=== PATIENT | male | born 1985 | race Caucasian/White ===

== ENCOUNTER 2020-11-10 17:01 | Emergency (ER) | payer BC, SELFPAY ==
[2020-11-10 17:30] VITALS: BP 139/83; PULSE 96; RESP 18; TEMP 36.6; O2SAT 97
[2020-11-10 17:52] VITALS: BP 139/83; PULSE 96; RESP 18; TEMP 37; O2SAT 98; BMI 29.5
--- NOTE | 2020-11-10 20:20 | XR_ITS ---
EXAMINATION: XR CHEST CLINICAL INFORMATION: Shortness of breath COMPARISON: 09/08/2017 TECHNIQUE: Frontal view of the chest was obtained. FINDINGS: No significant abnormality is noted involving the heart, lungs, mediastinum, bony thorax or soft tissues. XR/XR chest 1V IMPRESSION: Unremarkable examination.
--- NOTE | 2020-11-10 20:20 | ED.GENADULT ---
HPI - General Adult General Chief complaint: General Medical Stated complaint: Weakness Time Seen by Provider: 11/10/20 17:48 Related Data Allergies Allergy/AdvReac Type Severity Reaction Status Date / Time amoxicillin [From AUGMENTIN] Allergy Intermediate hives Verified 11/10/20 17:51 clavulanic acid Allergy Unknown UNKNOWN Verified 11/10/20 17:51 [From AUGMENTIN] [facility] Past Medical History Medical History (Updated 11/10/20 @ 17:53 by Abbey Viveros) Diabetes Physical Exam Vital Signs: Vital Signs: Last Vital Signs Temp 98.6 F 11/10/20 17:52 Pulse 96 11/10/20 17:52 Resp 18 11/10/20 17:52 BP 139/83 11/10/20 17:52 Pulse Ox 98 11/10/20 17:52 Body Mass Index 29.5 Course Course Course Narrative: Rapid medical exam - 35 y/o male with dx DM1, hx GERD, migraines, hx MSSA bacteremia, hx anxiety presenting presenting with generalized weakness, headaches, shakiness and muscle pains since last night. [place] and has had exposures to COVID. VSS and lungs are clear. Tremulous in hands. Denies ETOH. Will check labs, Utox, ETOH level, CXR and COVID swab. Management per primary provider in the ED.
[2020-11-10 21:04] LABS: Influenza A PCR NEGATIVE (Negative); Influenza B PCR NEGATIVE (Negative); Resp Syncy Virus RNA Qual PCR NEGATIVE (Negative); SARS COV2 PCR INHOUSE NEGATIVE (Negative)
--- NOTE | 2020-11-10 21:05 | ECG_ITS ---
Test Reason : CHEST PAIN/ SOB Blood Pressure : / mmHG Vent. Rate : 091 BPM Atrial Rate : 091 BPM P-R Int : 138 ms QRS Dur : 088 ms QT Int : 372 ms P-R-T Axes : 043 -22 041 degrees QTc Int : 457 ms Normal sinus rhythm Cannot exclude old inferior infarct; could be normal variant Abnormal ECG When compared with ECG of 08-SEP-2017 06:38, No significant change was found Referred By: Brandon Romero Electronically Signed By:LONG MCDERMOTT
--- NOTE | 2020-11-10 21:05 | CT_ITS ---
EXAMINATION: CT HEAD WITHOUT CONTRAST CLINICAL INFORMATION: Weakness. Tremors. COMPARISON: CT head 07/08/2020 TECHNIQUE: Contiguous axial imaging was performed from the skull base to vertex without intravenous administration of contrast. Coronal and sagittal reformatted images are performed at the CT scanner This CT examination was performed using dose optimization techniques as appropriate, variously including the following: *Automated exposure control *Adjustment of mA and/or kV according to patient size (this includes techniques or standardized protocols for targeted exams where dose is matched to indication/reason for exam; i.e. extremities or head) *Use of iterative reconstruction technique DLP: 783 mGy-cm FINDINGS: There is no evidence of acute intracranial hemorrhage or territorial infarction. No abnormal mass effect or midline shift is seen. Negro to white matter differentiation is well preserved. No extra-axial fluid collections are identified. The ventricles are normal in size. There is no abnormal attenuation within the brain parenchyma. The osseous structures and soft tissues are normal. The mastoid air cells and visualized portions of the paranasal sinuses are well aerated. CT/CT head/brain wo con IMPRESSION: No acute intracranial pathology.
--- NOTE | 2020-11-10 21:56 | PC.NURSE ---
patient away for imaging. Will obtain IV access, labs, and EKG upon return. Pt ambulates with steady gait, alert & oriented x3, calm/cooperative. Will continue to monitor.
[2020-11-10 22:13] LABS: MANUAL DIFF FLAG NO
[2020-11-10 22:14] LABS: Basophils Absolute Auto 0.1 X10*3/uL (0.0-0.2); Basophils Percent Auto 0.5 % (0-2); Eosinophils Absolute Auto 0.4 X10*3/uL (0.0-0.4); Hematocrit 47.6 % (42-52); Imm Gran Abs Auto 0.06 X10*3/uL (0.00-0.03); Imm Gran Pct Auto 0.5 % (0.0-0.4); Lymphocytes Absolute Auto 4.6 X10*3/uL (1.2-4.9); Lymphocytes Percent Auto 36.4 % (20-40); Mean Corpuscular HGB Conc 33.6 g/dl (31.0-36.0); Mean Corpuscular Hemoglobin 28.2 pg (27.0-33.0); Mean Platelet Volume 10.4 fL (9.4-12.4); Monocytes Absolute Auto 0.9 X10*3/uL (0.1-1.2); Monocytes Percent Auto 7.3 % (2-11); Neutrophils Absolute Auto 6.6 X10*3/uL (2.0-8.3); Neutrophils Percent Auto 52.3 % (45-73); Platelet Count 282 X10*3/uL (160-400); Red Blood Count 5.67 X10*6/uL (4.60-5.80); Red Cell Distribution Width 13.1 % (11.0-16.0); White Blood Count 12.6 X10*3/uL (4.8-10.8)
[2020-11-10 22:38] LABS: Ethanol < 10 mg/dL
[2020-11-10 22:40] LABS: Alanine Aminotransferase 40 U/L (0-40); Albumin Level 4.8 g/dL (3.5-5.0); Alkaline Phosphatase 79 U/L (39-117); Anion Gap 16 (12-20); Aspartate Amino Transferase 66 U/L (5-37); Bilirubin Direct 0.3 mg/dL (0.0-0.5); Bilirubin Total 0.8 mg/dL (0.0-1.0); Blood Urea Nitrogen 15 mg/dL (9-16); Calcium 9.4 mg/dL (8.4-10.2); Carbon Dioxide 25 mmol/L (22-29); Chloride 102 mmol/L (96-108); Creatinine Clr Calc Pharmacy 122.8; Estimated Glomerular Filt Rate > 60; Glucose Random 273 mg/dL (60-115); Potassium 3.9 mmol/l (3.3-5.1); Sodium 139 mmol/L (135-145)
[2020-11-10 22:45] LABS: Troponin-I High Sensitivity < 3.5 ng/L (<3.5-35.0)
--- NOTE | 2020-11-10 23:09 | ED_ITS ---
HPI - General Adult General Chief complaint: General Medical Stated complaint: Weakness Time Seen by Provider: 11/10/20 17:48 Source: patient Mode of arrival: ambulatory Limitations: no limitations History of Present Illness HPI narrative: Patient presents to ED for weakness described as fatigue and also having migraine headache exacerbation with mild tremors. Patient states usually when he has migraine exacerbation he has tremors. Patient denies any chest pain or shortness of breath. Patient states denies any night sweats, coughing, swelling of lower extremities, or calf pain. Patient denies any history of alcohol abuse or drug abuse. Related Data Previous Rx's Medication Instructions Recorded naproxen 500 mg PO BID PRN #20 tab 11/10/20 Allergies Allergy/AdvReac Type Severity Reaction Status Date / Time amoxicillin [From AUGMENTIN] Allergy Intermediate hives Verified 11/10/20 17:51 clavulanic acid Allergy Unknown UNKNOWN Verified 11/10/20 17:51 [From AUGMENTIN] Review of Systems Constitutional: Constitutional: Reports as per HPI, Reports no additional constitutional complaints and Reports headache(s) Eyes: Eyes: Reports as per HPI and Reports no additional eye complaints ENT: Reports system reviewed and no additional complaints, except as documented, Reports as per HPI and Reports headache(s) Cardiovascular: Cardiovascular: Reports as per HPI and Reports no additional cardiovascular complaints Respiratory: Respiratory: Reports as per HPI and Reports no additional respiratory complaints Gastrointestinal: Gastrointestinal: Reports as per HPI and Reports no additional gastrointestinal complaints Genitourinary: Genitourinary: Reports no additional male genitourinary complaints and Reports as per HPI Musculoskeletal: Musculoskeletal: Reports no additional musculoskeletal complaints and Reports as per HPI Comments: Mild tremor Neurologic: Reports system reviewed and no additional complaints, except as documented, Reports as per HPI and Reports headache(s) Comments: Mild tremor Psychiatric: Psychiatric: Reports no additional psychiatric complaints and Reports as per HPI [facility] Past Medical History Medical History Diabetes Social History Social History Advance Directives: No Advance Directives Information Provided: No Physical Exam Vital Signs: Vital Signs: Last Vital Signs Temp 98.6 F 11/10/20 17:52 Pulse 96 11/10/20 17:52 Resp 18 11/10/20 17:52 BP 139/83 11/10/20 17:52 Pulse Ox 98 11/10/20 17:52 Body Mass Index 29.5 Const: General: cooperative, healthy appearing, comfortable, no acute distress, well developed, alert, awake and Physically active Orientation/consciousness: patient oriented x3 HENMT: Head: Yes normal to inspection and Yes No palpable skull fracture present Eyes: General: appearance normal, both eyes and all related structures Neck: Neck: Yes normal visual inspection, Yes full ROM, Yes no lymphadenopathy, Yes no meningeal signs, Yes trachea midline, Yes supple and No tender Chest: Chest palpation & inspection: normal inspection of the chest and normal palpation of entire chest wall Resp: Effort & Inspection: normal respiratory effort and able to speak in complete sentences Auscultation: clear to auscultation bilaterally Cardio: Jugular venous distension: no JVD Heart sounds: S1 normal heart sound present and S2 normal heart sound present GI: Inspection: Yes normal to inspection Palpation (GI): Soft to palpation, nontender, no guarding and not rigid : General: No CVA tenderness and Yes no CVA tenderness Back/Spine/Pelvis: Back: no CVA tenderness, No CVA tenderness and No back tenderness Skin: General skin exam: no rashes or lesions noted and elasticity normal Neuro: Other: Mild tremors General: patient oriented x3, no meningeal signs and CN's II-XI intact bilaterally Cranial nerves: Yes CN's II-XII intact bilaterally Extrem: General: Yes normal to inspection and Yes full ROM Psych: Appearance: grossly normal, well kempt and not disheveled Course Course Course Narrative: Patient of basic labs drawn including magnesium to make sure there is no electrolye. Patient have EKG troponin due to patient stating weakness for couple days. Patient also has head CT scan. Differential mi graines exacerbation Reevaluation(s) Reevaluation #1: Patient labs came back normal. EKG normal. Troponin negative. Magnesium normal. Electrolytes are normal. Patient had CT scan negative for any intracranial pathology. Chest x-ray normal and negative for pneumonia. COVID swab negative Time: 23:13 Medical Decision Making [facility] Narrative Medical decision making narrative: Migraine exacerbation Lab Data Result diagrams: 11/10/20 22:05 11/10/20 22:05 Labs: Lab Results 11/10/20 11/10/20 11/10/20 Range/Units 20:03 22:05 22:05 WBC 12.6 H (4.8-10.8) X10*3/uL RBC 5.67 (4.60-5.80) X10*6/uL Hgb 16.0 (14.0-18.0) g/dl Hct 47.6 (42-52) % MCV 84.0 (80-98) fL MCH 28.2 (27.0-33.0) pg MCHC 33.6 (31.0-36.0) g/dl RDW 13.1 (11.0-16.0) % Plt Count 282 (160-400) X10*3/uL MPV 10.4 (9.4-12.4) fL Immature Gran % (Auto) 0.5 H (0.0-0.4) % Neut % (Auto) 52.3 (45-73) % Lymph % (Auto) 36.4 (20-40) % [place] % (Auto) 7.3 (2-11) % Eos % (Auto) 3.0 (0-4) % Baso % (Auto) 0.5 (0-2) % Lymph # (Auto) 4.6 (1.2-4.9) X10*3/uL [place] # (Auto) 0.9 (0.1-1.2) X10*3/uL Eos # (Auto) 0.4 (0.0-0.4) X10*3/uL Baso # (Auto) 0.1 (0.0-0.2) X10*3/uL Abs Immat Gran (auto) 0.06 H (0.00-0.03) X10*3/uL Absolute Neuts (auto) 6.6 (2.0-8.3) X10*3/uL Absolute Nucleated RBC 0.000 (0.0-0.012) X10*3/uL Nucleated RBC % (auto) 0.0 (0.0-0.2) /100WBC Hold Blue Top Sodium 139 (135-145) mmol/L Potassium 3.9 (3.3-5.1) mmol/l Chloride 102 (96-108) mmol/L Carbon Dioxide 25 (22-29) mmol/L Anion Gap 16 (12-20) BUN 15 (9-16) mg/dL Creatinine 1.06 (0.5-1.4) mg/dL Estim Creat Clear Calc 122.8 Estimated GFR > 60 Random Glucose 273 H (60-115) mg/dL Calcium 9.4 (8.4-10.2) mg/dL Magnesium 2.0 (1.6-2.6) mg/dL Total Bilirubin 0.8 (0.0-1.0) mg/dL Direct Bilirubin 0.3 (0.0-0.5) mg/dL AST 66 H (5-37) U/L ALT 40 (0-40) U/L Alkaline Phosphatase 79 (39-117) U/L Troponin I High Sens (<3.5-35.0) ng/L Total Protein 8.0 (6.5-8.0) g/dL Albumin 4.8 (3.5-5.0) g/dL Ethyl Alcohol mg/dL Coronavirus (PCR) NEGATIVE (Negative) Influenza Type A (PCR) NEGATIVE (Negative) Influenza Type B (PCR) NEGATIVE (Negative) RSV RNA Qual (PCR) NEGATIVE (Negative) 11/10/20 11/10/20 11/10/20 Range/Units 22:05 22:05 22:05 WBC (4.8-10.8) X10*3/uL RBC (4.60-5.80) X10*6/uL Hgb (14.0-18.0) g/dl Hct (42-52) % MCV (80-98) fL MCH (27.0-33.0) pg MCHC (31.0-36.0) g/dl RDW (11.0-16.0) % Plt Count (160-400) X10*3/uL MPV (9.4-12.4) fL Immature Gran % (Auto) (0.0-0.4) % Neut % (Auto) (45-73) % Lymph % (Auto) (20-40) % [place] % (Auto) (2-11) % Eos % (Auto) (0-4) % Baso % (Auto) (0-2) % Lymph # (Auto) (1.2-4.9) X10*3/uL [place] # (Auto) (0.1-1.2) X10*3/uL Eos # (Auto) (0.0-0.4) X10*3/uL Baso # (Auto) (0.0-0.2) X10*3/uL Abs Immat Gran (auto) (0.00-0.03) X10*3/uL Absolute Neuts (auto) (2.0-8.3) X10*3/uL Absolute Nucleated RBC (0.0-0.012) X10*3/uL Nucleated RBC % (auto) (0.0-0.2) /100WBC Hold Blue Top SEE NOTE Sodium (135-145) mmol/L Potassium (3.3-5.1) mmol/l Chloride (96-108) mmol/L Carbon Dioxide (22-29) mmol/L Anion Gap (12-20) BUN (9-16) mg/dL Creatinine (0.5-1.4) mg/dL Estim Creat Clear Calc Estimated GFR Random Glucose (60-115) mg/dL Calcium (8.4-10.2) mg/dL Magnesium (1.6-2.6) mg/dL Total Bilirubin (0.0-1.0) mg/dL Direct Bilirubin (0.0-0.5) mg/dL AST (5-37) U/L ALT (0-40) U/L Alkaline Phosphatase (39-117) U/L Troponin I High Sens < 3.5 (<3.5-35.0) ng/L Total Protein (6.5-8.0) g/dL Albumin (3.5-5.0) g/dL Ethyl Alcohol < 10 mg/dL Coronavirus (PCR) (Negative) Influenza Type A (PCR) (Negative) Influenza Type B (PCR) (Negative) RSV RNA Qual (PCR) (Negative) ECG Data Interpretation: A normal sinus rhythm. Inferior infarct. Ventricular rate 91. Pr interval 138. QRS duration 88. QTC 457. Negative STEMI Discharge Plan Discharge Clinical Impression: Migraine Patient Disposition: Home, Self-Care Instructions: Migraine Headache (ED) Additional Instructions: Return to the ED for worsening headache, chest pain, shortness of breath, dizziness, slurred speech, paralysis of extremities, coughing up blood, fever, chills, or any other concerning symptoms. Please follow-up with PCP Prescriptions: New naproxen 500 mg tablet 500 mg PO BID PRN (Reason: pain) Qty: 20 RF: 0 Interventions: ED Discharge Assessment Last Done: 11/10/20 23:53 Discharge Date/Time: 11/10/20 23:53 Print Language: Emirati
[2020-11-10] MEDS: Ketorolac Tromethamine 30 MG/ML VIAL IVPUSH (23:11)
[2020-11-10] MEDS: Butalb/Acetamin/Caff 50/325/40 TABLET 1 TAB PO (23:12)
== END 2020-11-10 23:53 | disposition home or self-care (01) ==
PROVIDERS: Physician Assistant; Emergency Provider Emergency Medicine
DX: G43.909 Migraine, unspecified, not intractable, without status migrainosus (principal); Z20.822 Contact with and (suspected) exposure to COVID-19; E11.9 Type 2 diabetes mellitus without complications
CPT/HCPCS: 0241U; 36415; 70450; 71045; 80053; 80076; 80320; 82248; 83735; 84484; 85025; 93005; 96374; 99283; 99284; J1885